=== PATIENT | male | born 1940 | race Caucasian/White ===

== ENCOUNTER 2017-06-26 05:05 | Day surgery (SDC) | payer OTHER, MEDICARE ==
[~2017-06-26] VITALS: Ht 165.1 cm; Wt 47.6 kg
[~2017-06-26 05:05] MED LIST: APRESOLINE10 MG PO; CENTRUM SILVER1 EAC5 PO; FLOMAX0.4 MG PO; LASIX20 MG PO; LOPRESSOR25 MG PO; NITROSTAT0.4 MG SL; NORVASC5 MG PO; PRAVACHOL40 MG PO; PROTONIX40 MG PO; PROVENTIL,2.5 MG/3 M IH; ROCALTROL0.25 MCG PO; SPIRIVA18 MCG IH; SYMBICORT60 INHALAT IH; VENTOLIN HFA18 GM IH; ZYRTEC10 M3 PO
[2017-06-26 06:41] LABS: HEMATOCRIT 32.1 % (38.0-50.0); MCH 30.7 PG (29.0-34.0); MCHC 31.2 G/DL (30.0-36.0); MCV 98.5 FL (86-99); PLATELET COUNT 109 K/uL (156-360); RBC DIS.WIDTH-CV 20.2 % (11.8-14.6); RBC DIS.WIDTH-SD 73.3 % (39-53); RED BLOOD COUNT 3.26 M/uL (4.00-5.50); WHITE BLOOD COUNT 4.1 K/uL (4.1-10.2)
[2017-06-26 06:49] VITALS: BP 145/84
[2017-06-26 06:56] LABS: CHLORIDE 104 MEQ/L (99-109); POTASSIUM 5.4 MEQ/L (3.7-5.4); SODIUM 137 MEQ/L (136-147)
[2017-06-26 07:02] LABS: CREATININE 4.7 MG/DL (0.6-1.3); GFR ESTIMATE (CALCULATED) 13 mL/min/ (58.99-99999); GLUCOSE 95 mg/dL (70-99); UREA NITROGEN (BUN) 70 mg/dL (9-23)
[2017-06-26 09:54] VITALS: BP 130/89
[2017-06-26 11:05] VITALS: BP 133/86
[2017-06-26 13:03] VITALS: BP 128/71
[2017-06-26 13:40] VITALS: BP 128/74
== END 2017-06-26 13:40 | disposition home or self-care (01) ==
LOC: SDC 05:05
PROVIDERS: Surgery
PROC: 03180ZF Bypass Left Brachial Artery to Lower Arm Vein, Open Approach (ICD-10-PCS; principal; 2017-06-26)
DX: I12.0 Hypertensive chronic kidney disease with stage 5 chronic kidney disease or end stage renal disease (principal); N18.6 End stage renal disease; Z99.2 Dependence on renal dialysis; F17.200 Nicotine dependence, unspecified, uncomplicated; I25.10 Atherosclerotic heart disease of native coronary artery without angina pectoris; Z95.1 Presence of aortocoronary bypass graft; Z90.49 Acquired absence of other specified parts of digestive tract; J44.9 Chronic obstructive pulmonary disease, unspecified
CPT/HCPCS: 71046; 80048; 85027; 87641; 93005; C2628; J0690; J1644; J2720; S0020

== ENCOUNTER 2017-10-22 07:03 | Day surgery (SDC) | payer OTHER, MEDICARE ==
[~2017-10-22] VITALS: Ht 165.1 cm; Wt 47.0 kg
== END 2017-10-22 10:38 | disposition home or self-care (01) ==
LOC: CATH 07:03
DX: T82.858A Stenosis of other vascular prosthetic devices, implants and grafts, initial encounter (principal); Y83.2 Surgical operation with anastomosis, bypass or graft as the cause of abnormal reaction of the patient, or of later complication, without mention of misadventure at the time of the procedure; I12.0 Hypertensive chronic kidney disease with stage 5 chronic kidney disease or end stage renal disease; F17.200 Nicotine dependence, unspecified, uncomplicated; N18.6 End stage renal disease; Z99.2 Dependence on renal dialysis; J44.9 Chronic obstructive pulmonary disease, unspecified; Z95.1 Presence of aortocoronary bypass graft
CPT/HCPCS: 87641; C1725; C1769; C1894; J1644; J2250; J2720; J3010

== ENCOUNTER 2017-11-18 06:53 | Day surgery (SDC) | payer OTHER, MEDICARE | END 2017-11-18 11:34 | disposition home or self-care (01) | LOC: CATH 06:53 | PROC: 3E03317 Introduction of Other Thrombolytic into Peripheral Vein, Percutaneous Approach (ICD-10-PCS; principal; 2017-11-18) | PROC: 05HY33Z Insertion of Infusion Device into Upper Vein, Percutaneous Approach (ICD-10-PCS; principal; 2017-11-18) | PROC: 057Y3ZZ Dilation of Upper Vein, Percutaneous Approach (ICD-10-PCS; principal; 2017-11-18) | PROC: B51W1ZZ Fluoroscopy of Dialysis Shunt/Fistula using Low Osmolar Contrast (ICD-10-PCS; principal; 2017-11-18) | DX: T82.858A Stenosis of other vascular prosthetic devices, implants and grafts, initial encounter (principal); Y83.2 Surgical operation with anastomosis, bypass or graft as the cause of abnormal reaction of the patient, or of later complication, without mention of misadventure at the time of the procedure; I12.0 Hypertensive chronic kidney disease with stage 5 chronic kidney disease or end stage renal disease; F17.200 Nicotine dependence, unspecified, uncomplicated; N18.6 End stage renal disease; Z99.2 Dependence on renal dialysis; I25.10 Atherosclerotic heart disease of native coronary artery without angina pectoris; J44.9 Chronic obstructive pulmonary disease, unspecified; Z95.1 Presence of aortocoronary bypass graft | CPT/HCPCS: 87641; C1725; C1769; C1894; J1644; J2250; J3010 ==